=== PATIENT | female | born 1950 | race African-American/Black ===

== ENCOUNTER 2020-05-24 08:00 | Emergency (ER) | payer MEDICARE, OTHER ==
[~2020-05-24] VITALS: Ht 172.7 cm; Wt 88.0 kg
[2020-05-24 08:19] VITALS: BP 177/104
[2020-05-24] MEDS ORDERED: HYDROcodone-ACET 5/325MG TAB PO ONE (10:00)
== END 2020-05-24 11:18 | disposition home or self-care (01) ==
LOC: ER 08:00
DX: S32.019A Unspecified fracture of first lumbar vertebra, initial encounter for closed fracture (principal); S52.501A Unspecified fracture of the lower end of right radius, initial encounter for closed fracture; I10 Essential (primary) hypertension; Z90.710 Acquired absence of both cervix and uterus; Z88.7 Allergy status to serum and vaccine; W18.09XA Striking against other object with subsequent fall, initial encounter; Y93.01 Activity, walking, marching and hiking; Y92.410 Unspecified street and highway as the place of occurrence of the external cause; Y99.8 Other external cause status
CPT/HCPCS: 29125; 72100; 73110

== ENCOUNTER → 2020-07-10 | Emergency (ER) | payer MEDICARE, OTHER ==
[~2020-07-10] VITALS: Ht 172.7 cm; Wt 86.2 kg
[~2020-07-10] MED LIST: HYDROcodone-ACET 5/325MG TAB PO ONE
[2020-07-10 08:09] VITALS: BP 173/100
== END | disposition home or self-care (01) ==
LOC: ER 08:02
DX: S83.8X1A Sprain of other specified parts of right knee, initial encounter (principal); M17.11 Unilateral primary osteoarthritis, right knee; I10 Essential (primary) hypertension; Z90.710 Acquired absence of both cervix and uterus; W18.11XA Fall from or off toilet without subsequent striking against object, initial encounter; Y93.89 Activity, other specified; Y92.091 Bathroom in other non-institutional residence as the place of occurrence of the external cause; Y99.8 Other external cause status
CPT/HCPCS: 72100; 73562

== ENCOUNTER 2022-08-14 07:57 | Emergency (ER) | payer MEDICARE, OTHER ==
[~2022-08-14] VITALS: Ht 172.7 cm; Wt 74.1 kg
[2022-08-14] MEDS ORDERED: ASPirin 81 mg TAB PO ONE ×2 (08:30→09:30)
[2022-08-14 08:39] LABS: Basophils # (auto) 0 10 ^3/uL (0-0.2); Basophils % (auto) 0.7 % (0.0-2.0); Eosinophils # (auto) 0.2 10 ^3/uL (0-0.8); Eosinophils % (auto) 3.2 % (0.0-7.0); Hematocrit 35.5 % (36.0-46.0); Hemoglobin 11.4 g/dL (12.2-16.2); Lymphocytes # (auto) 1.1 10 ^3/uL (0.4-5.4); Lymphocytes % (auto) 19.8 % (10.0-50.0); Mean Corpuscular Hgb Conc. 32.1 g/dL (32.0-36.0); Mean Corpuscular Volume 87.3 fL (80.0-100.0); Monocytes # (auto) 0.4 10 ^3/uL (0-1.3); Monocytes % (auto) 7.2 % (0.0-12.0); Neutrophils # (auto) 3.7 10 ^3/uL (1.6-8.6); Neutrophils % (auto) 69.1 % (37.0-80.0); Nucleated Red Blood Cells % 0.1 %; Red Blood Cells 4.07 10^6/uL (4.0-5.20); Red Cell Distribution Width 15.6 % (11.8-14.3); White Blood Cell 5.4 10^3/uL (4.4-10.8)
[2022-08-14 08:57] LABS: Albumin 3.8 g/dL (3.4-5.0); Calcium 8.6 mg/dL (8.5-10.1); Magnesium 2.4 mg/dL (1.6-2.6)
[2022-08-14 09:01] LABS: BUN/Creatinine Ratio 15.8; Bilirubin, Total 0.3 mg/dL (0.2-1.0); Total Protein 7.6 g/dL (6.4-8.2)
[2022-08-14] MEDS ORDERED: ENOXAPARIN SOD 100 MG/1 ML SYRINGE SC ONE (10:15)
[2022-08-14 10:54] VITALS: BP 209/116
[2022-08-15] MEDS ORDERED: HYDR25TA4 PO (00:43)
[2022-08-15] MEDS ORDERED: BUSP10TA90 PO (00:43)
[2022-08-15] MEDS ORDERED: GABA300C10 PO (00:43)
[2022-08-15] MEDS ORDERED: DICL1GEL TOP (00:43)
[2022-08-15] MEDS ORDERED: ASPI1TAB37 PO (00:43)
[2022-08-15] MEDS ORDERED: MELO1TAB56 PO (00:43)
[2022-08-15] MEDS ORDERED: LISI20TA28 PO (00:43)
== END 2022-08-14 10:53 | disposition left against medical advice (07) ==
LOC: ER 07:57
DX: I21.4 Non-ST elevation (NSTEMI) myocardial infarction (principal); N17.9 Acute kidney failure, unspecified; I16.0 Hypertensive urgency; R77.8 Other specified abnormalities of plasma proteins; I10 Essential (primary) hypertension; Z90.710 Acquired absence of both cervix and uterus; Z88.7 Allergy status to serum and vaccine
CPT/HCPCS: 36415; 71045; 80053; 83735; 83880; 84484; 85025; 93005

== ENCOUNTER 2022-08-14 13:40 | Inpatient (IN) | payer MEDICARE, OTHER ==
[~2022-08-14] VITALS: Ht 172.7 cm; Wt 76.9 kg
[2022-08-14] MEDS ORDERED: IOHEXOL 350 MG/ML 100ML IJ ONE (15:35)
[2022-08-14] MEDS ORDERED: ENOXAPARIN SOD 80 MG/0.8ML SYRINGE SC ONE (17:15)
[2022-08-14] MEDS ORDERED: MORPHINE SULFATE INJ 2 MG/ml SYRG IV ONE (18:15)
[2022-08-14] MEDS ORDERED: ONDANSETRON HCL 4 MG/2 ML VIAL IV ONE (18:15)
[2022-08-14] MEDS ORDERED: ALUM & MAG HYDROX-SIMETH LIQ(MAALOX) 30 ML PO ONE (18:30)
[2022-08-14] MEDS ORDERED: ALBUTEROL SULF 2.5 MG/0.5ML(0.5%) NEB SOLN NEB PRN (18:30)
[2022-08-14] MEDS ORDERED: MORPHINE SULFATE INJ 2 MG/ml SYRG IV PRN (18:30)
[2022-08-14] MEDS ORDERED: IPRATROPIUM BROM 0.5 MG/2.5ML INH SOL NEB PRN (18:30)
[2022-08-14] MEDS ORDERED: NITROGLYCERIN 0.4 MG SL TAB SL PRN ×2 (18:30)
[2022-08-14] MEDS ORDERED: hydrALAZINE HCL 20 MG/ML VL IV ONE (18:30)
[2022-08-14] MEDS ORDERED: ACETAMINOPHEN 325 MG TAB PO PRN (18:30)
[2022-08-14] MEDS ORDERED: ONDANSETRON HCL 4 MG/2 ML VIAL IV PRN (18:30)
[2022-08-14] MEDS ORDERED: MORPHINE SULFATE 4 MG/ML SYR/VIAL IV PRN (18:30)
[2022-08-14] MEDS: PANTOPRAZOLE 40 MG/10 ML VIAL INJ IV SCH (19:10)
[2022-08-14 19:28] LABS: Cholesterol 167 mg/dL (< 200)
[2022-08-14 19:30] LABS: INR 1.03 (0.9-1.15)
[2022-08-14 19:31] LABS: HDL Cholesterol 91 mg/dL (40-59); LDL Cholesterol 79 mg/dL (< 100); Triglycerides 48 mg/dL (< 150)
[2022-08-14 20:36] LABS: Basophils # (auto) 0.1 10 ^3/uL (0-0.2); Basophils % (auto) 1.2 % (0.0-2.0); Eosinophils # (auto) 0.2 10 ^3/uL (0-0.8); Eosinophils % (auto) 4.1 % (0.0-7.0); Hematocrit 32.4 % (36.0-46.0); Hemoglobin 10.6 g/dL (12.2-16.2); Lymphocytes # (auto) 1.6 10 ^3/uL (0.4-5.4); Lymphocytes % (auto) 36.7 % (10.0-50.0); Mean Corpuscular Hemoglobin 28.5 pg (28.0-32.0); Mean Corpuscular Hgb Conc. 32.6 g/dL (32.0-36.0); Mean Corpuscular Volume 87.3 fL (80.0-100.0); Monocytes # (auto) 0.4 10 ^3/uL (0-1.3); Monocytes % (auto) 8.1 % (0.0-12.0); Neutrophils # (auto) 2.2 10 ^3/uL (1.6-8.6); Neutrophils % (auto) 49.9 % (37.0-80.0); Nucleated Red Blood Cells % 0.1 %; Red Blood Cells 3.71 10^6/uL (4.0-5.20); Red Cell Distribution Width 15.9 % (11.8-14.3); White Blood Cell 4.4 10^3/uL (4.4-10.8)
[2022-08-14 21:26] VITALS: BP 96/57
[2022-08-14] MEDS ORDERED: ATORVASTATIN 20 MG TAB PO SCH (22:00)
[2022-08-15 00:09] VITALS: BP 156/76
[2022-08-15] MEDS ORDERED: LISI20TA28 PO (00:43)
[2022-08-15] MEDS ORDERED: BUSP10TA90 PO (00:43)
[2022-08-15] MEDS ORDERED: GABA300C10 PO (00:43)
[2022-08-15] MEDS ORDERED: DICL1GEL TOP (00:43)
[2022-08-15] MEDS ORDERED: ASPI1TAB37 PO (00:43)
[2022-08-15] MEDS ORDERED: HYDR25TA4 PO (00:43)
[2022-08-15] MEDS ORDERED: MELO1TAB56 PO (00:43)
[2022-08-15 05:02] VITALS: BP 152/83
[2022-08-15] MEDS ORDERED: ENOXAPARIN SOD 80 MG/0.8ML SYRINGE SC SCH (06:00)
[2022-08-15 06:04] LABS: Basophils # (auto) 0.1 10 ^3/uL (0-0.2); Eosinophils # (auto) 0.1 10 ^3/uL (0-0.8); Eosinophils % (auto) 1.3 % (0.0-7.0); Hematocrit 35.1 % (36.0-46.0); Hemoglobin 11.6 g/dL (12.2-16.2); Lymphocytes % (auto) 18.8 % (10.0-50.0); Mean Corpuscular Hemoglobin 28.8 pg (28.0-32.0); Mean Corpuscular Hgb Conc. 33.1 g/dL (32.0-36.0); Mean Corpuscular Volume 87.2 fL (80.0-100.0); Monocytes # (auto) 0.3 10 ^3/uL (0-1.3); Monocytes % (auto) 5.2 % (0.0-12.0); Neutrophils % (auto) 73.7 % (37.0-80.0); Red Blood Cells 4.02 10^6/uL (4.0-5.20); Red Cell Distribution Width 15.7 % (11.8-14.3); White Blood Cell 5.4 10^3/uL (4.4-10.8)
[2022-08-15 06:44] LABS: Potassium 3.9 mmol/L (3.5-5.1)
[2022-08-15 06:54] LABS: Albumin 3.8 g/dL (3.4-5.0); BUN/Creatinine Ratio 14.7; Bilirubin, Total 0.6 mg/dL (0.2-1.0); Calcium 8.9 mg/dL (8.5-10.1); Total Protein 7.7 g/dL (6.4-8.2)
[2022-08-15 08:00] VITALS: BP 178/98
[2022-08-15] MEDS ORDERED: HYDROcodone-ACET 5/325MG TAB PO PRN (08:30)
[2022-08-15] MEDS ORDERED: MORPHINE SULFATE INJ 2 MG/ml SYRG IV PRN (08:30)
[2022-08-15] MEDS: PANTOPRAZOLE 40 MG/10 ML VIAL INJ IV SCH (08:40)
[2022-08-15 09:10] VITALS: BP 178/98
[2022-08-15] MEDS ORDERED: CLOPIDOGREL BISULFATE 75 MG TAB PO SCH (10:00)
[2022-08-15] MEDS ORDERED: DOCUSATE SOD 100 MG CAP PO SCH (10:00)
[2022-08-15] MEDS ORDERED: ASPirin 325 MG TAB PO SCH (10:00)
[2022-08-15] MEDS ORDERED: HCTZ 25 MG TAB PO SCH (10:00)
[2022-08-15] MEDS ORDERED: LISINOPRIL 20 MG TAB PO SCH (10:00)
[2022-08-15] MEDS ORDERED: hydrALAZINE HCL 20 MG/ML VL IV PRN (11:45)
[2022-08-15] MEDS ORDERED: amLODIPine BESYLATE 5 MG TAB PO ONE (11:45)
[2022-08-15 12:52] VITALS: BP 173/106
[2022-08-16] MEDS ORDERED: amLODIPine BESYLATE 5 MG TAB PO SCH (10:00)
[2022-08-16] MEDS ORDERED: ASPirin 325 MG TAB PO SCH (10:00)
[2022-08-16] MEDS ORDERED: PANTOPRAZOLE 40 MG TAB PO SCH (10:00)
[2022-08-16] MEDS ORDERED: LISINOPRIL 20 MG TAB PO SCH (10:00)
== END 2022-08-15 17:00 | disposition left against medical advice (07) | DRG 281 ==
LOC: ER 13:40 → TELE 18:29 → TELE-WESTW 23:20
PROVIDERS: ADMIT Nurse Practitioner Family; ATTEND Nurse Practitioner Family
DX: I16.1 Hypertensive emergency (principal); I21.A1 Myocardial infarction type 2; N17.9 Acute kidney failure, unspecified; E78.5 Hyperlipidemia, unspecified; Z20.822 Contact with and (suspected) exposure to COVID-19; I10 Essential (primary) hypertension; Z53.29 Procedure and treatment not carried out because of patient's decision for other reasons; D64.9 Anemia, unspecified; J43.9 Emphysema, unspecified; Z79.01 Long term (current) use of anticoagulants; Z82.3 Family history of stroke; Z82.49 Family history of ischemic heart disease and other diseases of the circulatory system; Z86.711 Personal history of pulmonary embolism; Z90.710 Acquired absence of both cervix and uterus; Z98.84 Bariatric surgery status; Z98.51 Tubal ligation status
CPT/HCPCS: 36415; 71045; 71275; 80053; 80061; 83735; 83880; 84100; 84484; 85025; 85610; 87426; 93005; 93306; 96372; 96374; 96375; C9113; G0378; J2405

== ENCOUNTER 2022-08-17 08:57 | Inpatient (IN) | payer MEDICARE, OTHER ==
[~2022-08-17] VITALS: Ht 172.7 cm; Wt 74.7 kg
[2022-08-17] VITALS (8 sets, daily range): BP systolic 136–173; BP diastolic 72–95
[~2022-08-17 08:57] MED LIST changes: +ASPI1TAB37 PO; +BUSP10TA90 PO; +DICL1GEL TOP; +GABA300C10 PO; +HYDR25TA4 PO; -HYDROcodone-ACET 5/325MG TAB PO ONE; +LISI20TA28 PO; +MELO1TAB56 PO
[2022-08-17 09:25] LABS: Basophils # (auto) 0 10 ^3/uL (0-0.2); Eosinophils # (auto) 0.1 10 ^3/uL (0-0.8); Eosinophils % (auto) 4.1 % (0.0-7.0); Hematocrit 34.2 % (36.0-46.0); Lymphocytes # (auto) 0.9 10 ^3/uL (0.4-5.4); Lymphocytes % (auto) 27.2 % (10.0-50.0); Mean Corpuscular Hemoglobin 28.1 pg (28.0-32.0); Mean Corpuscular Hgb Conc. 32.3 g/dL (32.0-36.0); Mean Corpuscular Volume 87.1 fL (80.0-100.0); Monocytes # (auto) 0.3 10 ^3/uL (0-1.3); Monocytes % (auto) 7.5 % (0.0-12.0); Neutrophils % (auto) 60.2 % (37.0-80.0); Nucleated Red Blood Cells % 0.2 %; Red Blood Cells 3.93 10^6/uL (4.0-5.20); Red Cell Distribution Width 15.8 % (11.8-14.3); White Blood Cell 3.3 10^3/uL (4.4-10.8)
[2022-08-17] MEDS ORDERED: LISINOPRIL 20 MG TAB PO ONE (09:30)
[2022-08-17 09:40] LABS: Albumin 3.4 g/dL (3.4-5.0); Calcium 8.4 mg/dL (8.5-10.1); Potassium 3.4 mmol/L (3.5-5.1)
[2022-08-17 09:44] LABS: BUN/Creatinine Ratio 17.7; Bilirubin, Total 0.3 mg/dL (0.2-1.0); Total Protein 6.8 g/dL (6.4-8.2)
[2022-08-17] MEDS ORDERED: ASPirin 81 mg TAB PO ONE ×2 (10:45)
[2022-08-17] MEDS ORDERED: ONDANSETRON HCL 4 MG/2 ML VIAL IV ONE (11:00)
[2022-08-17] MEDS ORDERED: MORPHINE SULFATE INJ 2 MG/ml SYRG IV PRN ×2 (11:00→13:30)
[2022-08-17] MEDS ORDERED: HEPARIN SODIUM (PORCINE) 5000 UNITS/ML 1ML VIAL IV ONE (11:00)
[2022-08-17] MEDS ORDERED: MORPHINE SULFATE INJ 2 MG/ml SYRG IV ONE (11:00)
[2022-08-17] MEDS ORDERED: POTASSIUM CHLORIDE 40 MEQ, LIDOCAINE 1% (LOCAL ANESTH.) 4 ML in SODIUM CHL 0.9% 250 ML IV ONE (11:00)
[2022-08-17] MEDS ORDERED: NITROGLYCERIN 0.4 MG SL TAB SL PRN ×2 (11:00→13:30)
[2022-08-17 12:30] LABS: INR 0.97 (0.9-1.15)
[2022-08-17] MEDS ORDERED: IOHEXOL 350 MG/ML 100ML IJ ONE (14:32)
[2022-08-17] MEDS ORDERED: LIDOCAINE 2%HCL (LOCAL ANESTH.) INJ 20ML MDV ONE (14:32)
[2022-08-17] MEDS ORDERED: IODIXANOL 320MG/ML 100ML BTL IV ONE (14:34)
[2022-08-17] MEDS ORDERED: HEPARIN SODIUM (PORCINE) 5000 UNITS/ML 1ML VIAL ONE (14:37)
[2022-08-17] MEDS ORDERED: fentaNYL CITRATE 100 MCG/2 ML VL ONE (14:37)
[2022-08-17] MEDS ORDERED: VERAPAMIL 2.5MG/ML INJ 2ML VIAL IV ONE (14:37)
[2022-08-17] MEDS ORDERED: MIDAZOLAM HCL 2MG/2ML 2ml VIAL (1mg/ml) ONE (14:37)
[2022-08-17] MEDS ORDERED: ANGIOMAX 250 MG VIAL IV ONE (14:37)
[2022-08-17] MEDS ORDERED: SODIUM CHL 0.9% 0 ML ONE (14:38)
[2022-08-17] MEDS ORDERED: hydrALAZINE HCL 20 MG/ML VL IV PRN (19:00)
[2022-08-18] MEDS ORDERED: NITROGLYCERIN 0.4 MG SL TAB SL PRN (03:15)
[2022-08-18] MEDS ORDERED: MORPHINE SULFATE INJ 2 MG/ml SYRG IV PRN (03:15)
[2022-08-18 05:00] VITALS: BP 141/93
[2022-08-18 06:09] LABS: Basophils # (auto) 0 10 ^3/uL (0-0.2); Basophils % (auto) 1.3 % (0.0-2.0); Eosinophils # (auto) 0.2 10 ^3/uL (0-0.8); Eosinophils % (auto) 6.2 % (0.0-7.0); Hematocrit 34.9 % (36.0-46.0); Hemoglobin 11.2 g/dL (12.2-16.2); Lymphocytes % (auto) 33.5 % (10.0-50.0); Mean Corpuscular Hemoglobin 28.1 pg (28.0-32.0); Mean Corpuscular Hgb Conc. 32.2 g/dL (32.0-36.0); Mean Corpuscular Volume 87.4 fL (80.0-100.0); Monocytes # (auto) 0.3 10 ^3/uL (0-1.3); Monocytes % (auto) 10.3 % (0.0-12.0); Neutrophils # (auto) 1.5 10 ^3/uL (1.6-8.6); Neutrophils % (auto) 48.7 % (37.0-80.0); Nucleated Red Blood Cells % 0.2 %; Red Blood Cells 3.99 10^6/uL (4.0-5.20); Red Cell Distribution Width 15.7 % (11.8-14.3)
[2022-08-18 06:23] LABS: Albumin 3.5 g/dL (3.4-5.0); Calcium 8.8 mg/dL (8.5-10.1); Potassium 4.2 mmol/L (3.5-5.1)
[2022-08-18 06:27] LABS: BUN/Creatinine Ratio 14.7; Bilirubin, Total 0.4 mg/dL (0.2-1.0); Total Protein 7.1 g/dL (6.4-8.2)
[2022-08-18 09:00] VITALS: BP 150/90
[2022-08-18] MEDS ORDERED: HCTZ 25 MG TAB PO ONE (12:00)
[2022-08-18] MEDS ORDERED: HYDR25TA4 PO (13:11)
[2022-08-18] MEDS ORDERED: ASPI1TAB20 PO (13:11)
[2022-08-18] MEDS ORDERED: BUSP10TA31 PO (13:11)
[2022-08-18] MEDS ORDERED: LISI20TA28 PO (13:11)
[2022-08-18] MEDS ORDERED: LISINOPRIL 20 MG TAB PO ONE (13:15)
[2022-08-18] MEDS ORDERED: FAMO-161 PO (13:15)
[2022-08-18 14:27] VITALS: BP 150/87
[2022-08-19] MEDS ORDERED: HCTZ 25 MG TAB PO SCH (10:00)
== END 2022-08-18 16:15 | disposition home or self-care (01) | DRG 287 ==
LOC: ER 08:57 → TELE 13:30 → TELE-WESTW 17:36
PROVIDERS: ADMIT Registered Nurse; ATTEND Internal Medicine
PROC: B211YZZ Fluoroscopy of Multiple Coronary Arteries using Other Contrast (ICD-10-PCS; principal; 2022-08-17)
PROC: 4A023N7 Measurement of Cardiac Sampling and Pressure, Left Heart, Percutaneous Approach (ICD-10-PCS; 2022-08-17)
PROC: B215YZZ Fluoroscopy of Left Heart using Other Contrast (ICD-10-PCS; 2022-08-17)
DX: I16.0 Hypertensive urgency (principal); I10 Essential (primary) hypertension; I35.1 Nonrheumatic aortic (valve) insufficiency; D64.9 Anemia, unspecified; K21.9 Gastro-esophageal reflux disease without esophagitis; R73.03 Prediabetes; Z20.822 Contact with and (suspected) exposure to COVID-19; K44.9 Diaphragmatic hernia without obstruction or gangrene; M19.90 Unspecified osteoarthritis, unspecified site; Z79.01 Long term (current) use of anticoagulants; Z82.3 Family history of stroke; Z82.49 Family history of ischemic heart disease and other diseases of the circulatory system; Z86.711 Personal history of pulmonary embolism; Z90.710 Acquired absence of both cervix and uterus; Z98.84 Bariatric surgery status; Z98.51 Tubal ligation status
CPT/HCPCS: 36415; 71045; 80053; 83036; 83735; 83880; 84443; 84484; 85025; 85610; 85730; 87426; 93005; 93458; 96374; 96375; 99152; G0378; J2001; J2250; J2405; Q9967

== ENCOUNTER 2022-10-06 08:49 | Emergency (ER) | payer MEDICARE, OTHER ==
[~2022-10-06 08:49] MED LIST changes: +ASPI1TAB20 PO; +BUSP10TA31 PO; +FAMO-161 PO
== END 2022-10-06 10:59 | disposition left against medical advice (07) ==
LOC: ER 08:49
DX: I10 Essential (primary) hypertension (principal); Z76.0 Encounter for issue of repeat prescription; Z53.21 Procedure and treatment not carried out due to patient leaving prior to being seen by health care provider

== ENCOUNTER 2022-10-08 07:17 | Emergency (ER) | payer MEDICARE, OTHER ==
[~2022-10-08] VITALS: Ht 172.7 cm; Wt 71.0 kg
[2022-10-08 07:30] VITALS: BP 199/98
[2022-10-08] MEDS ORDERED: ASPirin 81 mg TAB PO ONE (08:00)
[2022-10-08 08:06] LABS: Basophils # (auto) 0.1 10 ^3/uL (0-0.2); Basophils % (auto) 2.6 % (0.0-2.0); Eosinophils # (auto) 0.2 10 ^3/uL (0-0.8); Eosinophils % (auto) 5.4 % (0.0-7.0); Hematocrit 34.4 % (36.0-46.0); Hemoglobin 10.8 g/dL (12.2-16.2); Lymphocytes # (auto) 1.1 10 ^3/uL (0.4-5.4); Lymphocytes % (auto) 36.2 % (10.0-50.0); Mean Corpuscular Hgb Conc. 31.4 g/dL (32.0-36.0); Mean Corpuscular Volume 89.1 fL (80.0-100.0); Monocytes # (auto) 0.3 10 ^3/uL (0-1.3); Monocytes % (auto) 8.5 % (0.0-12.0); Neutrophils # (auto) 1.5 10 ^3/uL (1.6-8.6); Neutrophils % (auto) 47.3 % (37.0-80.0); Nucleated Red Blood Cells % 0.2 %; Red Blood Cells 3.87 10^6/uL (4.0-5.20); Red Cell Distribution Width 15.3 % (11.8-14.3); White Blood Cell 3.2 10^3/uL (4.4-10.8)
[2022-10-08 08:31] LABS: INR 1.03 (0.9-1.15); Partial Thromboplastin Time 25.6 sec (24.6-33.4)
[2022-10-08 08:55] LABS: Albumin 3.9 g/dL (3.4-5.0); BUN/Creatinine Ratio 26.2; Bilirubin, Total 0.6 mg/dL (0.2-1.0); Calcium 9.2 mg/dL (8.5-10.1); Total Protein 7.4 g/dL (6.4-8.2)
[2022-10-08] MEDS ORDERED: HYDR25TA5 GT (09:19)
[2022-10-08] MEDS ORDERED: FAMO20TA10 GT (09:19)
[2022-10-08] MEDS ORDERED: ASPI81CH59 PO (09:19)
[2022-10-08] MEDS ORDERED: BUSP7.5T8 PO (09:19)
[2022-10-08] MEDS ORDERED: LISI20TA28 PO (09:21)
[2022-10-08] MEDS ORDERED: CLON0.1T PO (09:29)
== END 2022-10-08 10:30 | disposition left against medical advice (07) ==
LOC: ER 07:17
DX: I25.2 Old myocardial infarction (principal); I16.0 Hypertensive urgency; Z90.710 Acquired absence of both cervix and uterus; Z79.82 Long term (current) use of aspirin; Z79.899 Other long term (current) drug therapy; Z88.7 Allergy status to serum and vaccine
CPT/HCPCS: 36415; 71045; 80053; 84484; 85025; 85610; 85730; 93005

== ENCOUNTER 2023-01-15 07:35 | Emergency (ER) | payer MEDICARE, OTHER ==
[~2023-01-15] VITALS: Ht 172.7 cm; Wt 78.1 kg
[~2023-01-15 07:35] MED LIST changes: +ASPI81CH59 PO; +BUSP7.5T8 PO; +CLON0.1T PO; +FAMO20TA10 GT; +HYDR25TA5 GT
[2023-01-15 08:37] LABS: Basophils # (auto) 0.1 10 ^3/uL (0-0.2); Eosinophils # (auto) 0.2 10 ^3/uL (0-0.8); Hemoglobin 10.5 g/dL (12.2-16.2); Lymphocytes % (auto) 29.8 % (10.0-50.0); Mean Corpuscular Hemoglobin 28.7 pg (28.0-32.0); Mean Corpuscular Hgb Conc. 32.7 g/dL (32.0-36.0); Mean Corpuscular Volume 87.9 fL (80.0-100.0); Monocytes # (auto) 0.3 10 ^3/uL (0-1.3); Neutrophils # (auto) 1.7 10 ^3/uL (1.6-8.6); Neutrophils % (auto) 53.2 % (37.0-80.0); Nucleated Red Blood Cells % 0.1 %; Red Blood Cells 3.65 10^6/uL (4.0-5.20); White Blood Cell 3.2 10^3/uL (4.4-10.8)
[2023-01-15 09:03] LABS: INR 0.97 (0.9-1.15); Partial Thromboplastin Time 26.5 sec (24.6-33.4)
[2023-01-15 09:05] LABS: Albumin 3.6 g/dL (3.4-5.0); BUN/Creatinine Ratio 18.9; Calcium 8.7 mg/dL (8.5-10.1); Magnesium 2.5 mg/dL (1.6-2.6); Potassium 3.9 mmol/L (3.5-5.1)
[2023-01-15 09:18] LABS: Bilirubin, Total 0.2 mg/dL (0.2-1.0); Total Protein 7.1 g/dL (6.4-8.2)
[2023-01-15] MEDS ORDERED: IOHEXOL 350 MG/ML 100ML IJ ONE (09:52)
[2023-01-15] MEDS ORDERED: ENOXAPARIN SOD 100 MG/1 ML SYRINGE SC ONE (10:30)
[2023-01-15 10:34] VITALS: BP 203/99
== END 2023-01-15 10:53 | disposition left against medical advice (07) ==
LOC: ER 07:35
DX: I21.4 Non-ST elevation (NSTEMI) myocardial infarction (principal); I10 Essential (primary) hypertension; Z79.899 Other long term (current) drug therapy; Z79.82 Long term (current) use of aspirin; Z90.710 Acquired absence of both cervix and uterus; Z98.51 Tubal ligation status; Z88.8 Allergy status to other drugs, medicaments and biological substances
CPT/HCPCS: 36415; 71045; 80053; 83735; 83880; 84484; 85025; 85379; 85610; 85730; 93005; 96372; 99285; J1650

== ENCOUNTER 2023-01-16 06:43 | Emergency (ER) | payer MEDICARE, OTHER ==
[~2023-01-16] VITALS: Ht 172.7 cm; Wt 74.3 kg
[2023-01-16 07:09] VITALS: BP 181/97
[2023-01-16 07:11] LABS: Basophils # (auto) 0.1 10 ^3/uL (0-0.2); Basophils % (auto) 2.4 % (0.0-2.0); Eosinophils # (auto) 0.2 10 ^3/uL (0-0.8); Hematocrit 31.5 % (36.0-46.0); Hemoglobin 10.2 g/dL (12.2-16.2); Lymphocytes # (auto) 1.2 10 ^3/uL (0.4-5.4); Lymphocytes % (auto) 36.8 % (10.0-50.0); Mean Corpuscular Hemoglobin 28.7 pg (28.0-32.0); Mean Corpuscular Hgb Conc. 32.5 g/dL (32.0-36.0); Mean Corpuscular Volume 88.4 fL (80.0-100.0); Monocytes # (auto) 0.3 10 ^3/uL (0-1.3); Monocytes % (auto) 10.3 % (0.0-12.0); Neutrophils # (auto) 1.4 10 ^3/uL (1.6-8.6); Neutrophils % (auto) 43.5 % (37.0-80.0); Nucleated Red Blood Cells % 0.2 %; Red Blood Cells 3.56 10^6/uL (4.0-5.20); Red Cell Distribution Width 14.9 % (11.8-14.3); White Blood Cell 3.1 10^3/uL (4.4-10.8)
[2023-01-16 07:30] LABS: Albumin 3.4 g/dL (3.4-5.0); Calcium 8.2 mg/dL (8.5-10.1); Potassium 3.6 mmol/L (3.5-5.1)
[2023-01-16 07:34] LABS: BUN/Creatinine Ratio 18.8; Bilirubin, Total 0.2 mg/dL (0.2-1.0); Total Protein 6.9 g/dL (6.4-8.2)
[2023-01-16 07:50] LABS: Urine Bacteria FEW /hpf (None Seen); Urine Blood Negative /uL (Negative); Urine Specific Gravity 1.018 (1.001-1.035); Urine WBC 21 /hpf (0 - 5)
[2023-01-16] MEDS ORDERED: ENOXAPARIN SOD 80 MG/0.8ML SYRINGE SC ONE (08:15)
== END 2023-01-16 11:26 | disposition left against medical advice (07) ==
LOC: ER 06:43
DX: I21.4 Non-ST elevation (NSTEMI) myocardial infarction (principal); I10 Essential (primary) hypertension; I25.2 Old myocardial infarction; Z90.710 Acquired absence of both cervix and uterus; Z79.82 Long term (current) use of aspirin; Z79.899 Other long term (current) drug therapy; Z88.7 Allergy status to serum and vaccine; Z20.822 Contact with and (suspected) exposure to COVID-19
CPT/HCPCS: 36415; 71046; 80053; 81001; 84484; 85025; 87426; 93005; 96372; 99285; J1650

== ENCOUNTER 2023-06-06 09:26 | Emergency (ER) | payer MEDICARE, OTHER ==
[~2023-06-06] VITALS: Ht 172.7 cm; Wt 72.1 kg
[~2023-06-06 09:26] MED LIST changes: +ASPI-628 PO; -ASPI1TAB37 PO; -DICL1GEL TOP; +DICL5GEL TOP; +GABA-1250 PO; -GABA300C10 PO; -LISI20TA28 PO; +LISI20TA56 PO; +MELO-335 PO; -MELO1TAB56 PO
[2023-06-06] MEDS ORDERED: cloNIDine HCL 0.1 MG TAB PO ONE (09:45)
[2023-06-06 10:00] VITALS: TEMP 98.3
[2023-06-06 10:01] VITALS: PULSE 80; RESP 17; O2SAT 97
[2023-06-06 10:36] VITALS: PULSE 69
[2023-06-06] MEDS ORDERED: HCTZ 25 MG TAB PO ONE (11:00)
[2023-06-06] MEDS ORDERED: LISINOPRIL 20 MG TAB PO ONE (11:00)
[2023-06-06] MEDS ORDERED: HYDR25TA4 PO (12:36)
[2023-06-06] MEDS ORDERED: LISI20TA56 PO (12:36)
[2023-06-06] MEDS ORDERED: CLON0.1T PO (12:36)
[2023-06-06 12:39] VITALS: BP 148/85
== END 2023-06-06 13:01 | disposition home or self-care (01) ==
LOC: ER 09:26
DX: I16.9 Hypertensive crisis, unspecified (principal); Z79.82 Long term (current) use of aspirin; Z79.899 Other long term (current) drug therapy; Z88.8 Allergy status to other drugs, medicaments and biological substances; Z98.51 Tubal ligation status; Z90.710 Acquired absence of both cervix and uterus
CPT/HCPCS: 93005

== ENCOUNTER → 2024-08-28 | Outpatient (CLI) | payer MEDICARE, OTHER ==
[~2024-08-28] MED LIST changes: -MELO-335 PO; +MELO15TA29 PO
[2024-08-28 10:24] LABS: Urine Bacteria None Seen /hpf (None Seen)
[2024-08-28 11:40] LABS: Basophils # (auto) 0.1 10 ^3/uL (0-0.2); Basophils % (auto) 1.1 % (0.0-2.0); Eosinophils # (auto) 0.2 10 ^3/uL (0-0.8); Eosinophils % (auto) 4.3 % (0.0-7.0); Hematocrit 32.6 % (36.0-46.0); Hemoglobin 10.7 g/dL (12.2-16.2); Lymphocytes # (auto) 1.7 10 ^3/uL (0.4-5.4); Lymphocytes % (auto) 33.6 % (10.0-50.0); Mean Corpuscular Hemoglobin 27.9 pg (28.0-32.0); Mean Corpuscular Hgb Conc. 32.7 g/dL (32.0-36.0); Mean Corpuscular Volume 85.5 fL (80.0-100.0); Monocytes # (auto) 0.4 10 ^3/uL (0-1.3); Monocytes % (auto) 8.9 % (0.0-12.0); Neutrophils # (auto) 2.6 10 ^3/uL (1.6-8.6); Neutrophils % (auto) 52.1 % (37.0-80.0); Nucleated Red Blood Cells % 0.2 %; Platelet Count (auto) 287 10^3/uL (140-450); Red Blood Cells 3.82 10^6/uL (4.0-5.20); Red Cell Distribution Width 16.5 % (11.8-14.3)
[2024-08-28 11:54] LABS: Urine Blood Negative /uL (Negative); Urine Clarity Clear (Clear); Urine Color Yellow (Yellow); Urine Mucus FEW (None Seen); Urine Protein, UAD TRACE (Negative); Urine Specific Gravity 1.022 (1.001-1.035); Urine Urobilinogen Normal (Negative); Urine WBC 3 /hpf (0 - 5)
[2024-08-28 12:12] LABS: Alanine Aminotransferase 22 U/L (7-40); Albumin 4.3 g/dL (3.2-4.8); Alkaline Phosphatase 60 U/L (46-116); Anion Gap 6 (5-15); Aspartate Aminotransferase 25 U/L (13-40); BUN/Creatinine Ratio 20.7 (10.0-20.0); Blood Urea Nitrogen 23 mg/dL (9-23); Calcium 9.7 mg/dL (8.7-10.4); Carbon Dioxide 29 mmol/L (20-31); Chloride 108 mmol/L (98-107); Glucose 86 mg/dL (74-106); LDL Cholesterol 83 mg/dL (< 100); Sodium 143 mmol/L (136-145); Triglycerides 89 mg/dL (< 150)
[2024-08-28 12:13] LABS: Bilirubin, Total 0.4 mg/dL (0.2-1.0); HDL Cholesterol 75 mg/dL (40-59); Total Protein 7.3 g/dL (5.7-8.2)
[2024-08-28 12:33] LABS: Cholesterol 164 mg/dL (< 200)
== END | disposition home or self-care (01) ==
LOC: LAB 10:03
PROVIDERS: ATTEND Nurse Practitioner
DX: E03.9 Hypothyroidism, unspecified (principal); R73.9 Hyperglycemia, unspecified; E78.5 Hyperlipidemia, unspecified
CPT/HCPCS: 36415; 80053; 80061; 81001; 83036; 84443; 85025